=== PATIENT | male | born 1950 | race Caucasian/White ===

== ENCOUNTER 2021-01-11 10:00 | Outpatient (CLI) | payer OTHER | END 2021-01-11 10:30 | disposition home or self-care (01) | LOC: PPH VACUNA 10:00 | PROVIDERS: ATTEND Emergency Medicine Pediatric Emergency Medicine | DX: Z23 Encounter for immunization (principal) ==

== ENCOUNTER 2021-08-18 08:00 | Outpatient (CLI) | payer OTHER | END 2021-08-18 08:30 | disposition home or self-care (01) | LOC: PPH VACUNA 08:00 | PROVIDERS: ATTEND Emergency Medicine Pediatric Emergency Medicine | DX: Z23 Encounter for immunization (principal); Z71.85 Encounter for immunization safety counseling ==

== ENCOUNTER → 2022-11-26 | Emergency (ER) | payer OTHER ==
[~2022-11-26] VITALS: Ht 172.7 cm; Wt 70.3 kg
[~2022-11-26] MED LIST: ALPRAZOLAM OD0.25 MG; BIDIL TABLET1 EACH; COZAAR25 MG; ECOTRIN81 MG; EZALLOR SPRINKLE5 MG; KAPSPARGO SPRIN25 MG; MEDROLPACK PO; NITROGLYCERIN0.4 MG; PAXLOVID 300-11 EACH PO; PROAIR RESPICL90 MCG IH; TUSNEL LIQUID178 ML PO; XARELTO10 MG
== END | disposition home or self-care (01) ==
LOC: ER 08:26
DX: U07.1 COVID-19 (principal); B34.9 Viral infection, unspecified; R53.81 Other malaise; R10.9 Unspecified abdominal pain; I10 Essential (primary) hypertension

== ENCOUNTER 2023-11-25 16:17 | Emergency (ER) | payer OTHER ==
[~2023-11-25] VITALS: Ht 152.4 cm; Wt 71.7 kg
[2023-11-25] MEDS ORDERED: SYNTHROID88 MCG PO (16:52)
[2023-11-25] MEDS ORDERED: TOPROL XL25 M1 PO (16:52)
[2023-11-25 18:45] LABS: HEMATOCRIT 44.8 % (39.0-48.0); HEMOGLOBIN 14.9 g/dL (13-16.00); MEAN CELL VOLUME 83.9 fL (80.0-100.00); MEAN CORPUSCULAR HGB CONC 33.3 g/dl (32.0-36.0); PLATELET COUNT 143 K/uL (150-450); RED BLOOD COUNT 5.34 M/uL (4.00-6.00); RED CELL DISTRIBUTION WIDTH 14.7 % (11.5-14.5)
[2023-11-25 18:57] LABS: CALCIUM 10.1 mg/dL (8.5-10.1); CREATININE SERUM 0.91 mg/dL (0.70-1.30); GFR 81.44; POTASSIUM 4.28 mEq/L (3.5-5.1)
== END 2023-11-25 19:35 | disposition home or self-care (01) ==
LOC: ER 16:19
PROVIDERS: General Practice
DX: M94.0 Chondrocostal junction syndrome [Tietze] (principal); V89.2XXA Person injured in unspecified motor-vehicle accident, traffic, initial encounter

== ENCOUNTER 2024-10-09 14:49 | Emergency (ER) | payer OTHER ==
[~2024-10-09] VITALS: Ht 170.2 cm; Wt 71.2 kg
[~2024-10-09 14:49] MED LIST changes: +SYNTHROID88 MCG PO; +TOPROL XL25 M1 PO
[2024-10-09] MEDS ORDERED: FAMOTIDINE/PF 20 MG/2 ML VIAL IV ONE (16:45)
[2024-10-09] MEDS ORDERED: KETOROLAC TROMETHAMINE 15 MG VIAL IV ONE (16:45)
[2024-10-09] MEDS ORDERED: KETOROLAC TROMETHAMINE 30 MG VIAL ONE (17:01)
[2024-10-09] MEDS ORDERED: FAMOTIDINE/PF 20 MG/2 ML VIAL ONE (17:01)
[2024-10-09 17:42] LABS: BASO % 0.3 % (0.1-1.2); EOS # 0.12 (0.04-0.54); EOS % 1.3 % (0.7-7.0); HEMATOCRIT 37.6 % (40.1-51.0); HEMOGLOBIN 12.4 g/dL (13.7-17.5); LYMPH # 1.24 (1.18-3.74); LYMPH % 13.9 % (19.3-53.1); MONO # 1.08 (0.24-0.82); NEUT # 6.39 (1.56-6.13); NEUT % 72.1 % (34.0-71.1); PLATELET COUNT 135 K/uL (163-369); RED BLOOD COUNT 4.59 M/uL (4.63-6.08); RED CELL DISTRIBUTION WIDTH 15.5 % (11.6-14.4)
[2024-10-09 17:44] LABS: MONO % 12.1 % (4.7-12.5)
[2024-10-09 17:58] LABS: INR 1.27; PARTIAL THROMBOPLASTIN TIME 29.3 SECONDS (22.0-34.0); PROTHROMBIN TIME 13.6 SECONDS (9.0-11.5)
[2024-10-09 18:00] LABS: CALCIUM 9.2 mg/dL (8.5-10.1); CREATININE SERUM 0.89 mg/dL (0.70-1.30); GFR 83.33; POTASSIUM 4.02 mEq/L (3.5-5.1)
[2024-10-09 19:42] LABS: PH,URINE 6.5 (5.0-8.0); URINE APPEARANCE Clear; URINE BILIRRUBIN Negative (NEGATIVE); URINE BLOOD Negative; URINE COLOR Dark Yellow; URINE GLUCOSE Negative (NEGATIVE); URINE KETONE Negative (NEGATIVE); URINE LEUKOCYTE Negative; URINE NITRATE Negative
[2024-10-09 19:46] LABS: URINE BACTERIA 15.9 uL (0.0-1933); URINE RBC 10.7 uL (0.0-20.8); URINE WBC 2.8 uL (0.0-23.2)
[2024-10-09 19:52] LABS: URINE CAST 0.29 uL (0.0-1.40); URINE PROTEIN 100 (NEGATIVE)
[2024-10-09] MEDS ORDERED: PIPERACILLIN/TAZOBACTAM SODIUM 3.375 GM VIAL IV ONE ×2 (21:15→21:59)
== END 2024-10-09 22:41 | disposition home or self-care (01) ==
LOC: ER 14:49
PROVIDERS: Emergency Medicine
DX: K57.32 Diverticulitis of large intestine without perforation or abscess without bleeding (principal); K40.90 Unilateral inguinal hernia, without obstruction or gangrene, not specified as recurrent
CPT/HCPCS: 36415; 74177; 96365; 99284; J1885; J3490; Q9965

== ENCOUNTER 2024-11-20 11:31 | Inpatient (IN) | payer OTHER ==
[~2024-11-20] VITALS: Ht 172.7 cm; Wt 68.0 kg
--- NOTE | 2024-11-20 11:50 | NUR ---
PACIENTE ALERTA Y ORIENTADO X3 EL MISMO REFIERE QUE ESTUBO AQUI EL DE Y LE DIAGNOSTICARON DIVERTIGULO INFAMADO Y EN EL ALISON DE HOY PRESENTA DOLOR ABDOMINAL. S/V ESTABLE DENTRO DE SOLOMON CONDICION . PACIENTE EN ESPERA DE EVALUACION MEDICA.
[2024-11-20] MEDS ORDERED: ONDANSETRON HCL 2 MG/ML VIAL IV ONE (13:00)
[2024-11-20] MEDS ORDERED: FAMOTIDINE/PF 20 MG/2 ML VIAL IV ONE (13:00)
[2024-11-20] MEDS ORDERED: KETOROLAC TROMETHAMINE 30 MG VIAL IV ONE (13:00)
[2024-11-20] MEDS ORDERED: 0.9 % SODIUM CHLORIDE 500 ML IV ONE (13:00)
[2024-11-20] MEDS ORDERED: FAMOTIDINE/PF 20 MG/2 ML VIAL ONE (13:01)
[2024-11-20] MEDS ORDERED: ONDANSETRON HCL 2 MG/ML VIAL ONE (13:01)
[2024-11-20] MEDS ORDERED: BARIUM SULFATE 450 ML ORAL.SUSP PO ONE (13:01)
[2024-11-20] MEDS ORDERED: KETOROLAC TROMETHAMINE 30 MG VIAL ONE (13:01)
[2024-11-20] MEDS ORDERED: DIATRIZOATE MEGLUMINE, SODIUM 30 ML BOTTLE ONE (13:09)
--- NOTE | 2024-11-20 13:24 | NUR ---
PTE EVALUADO POR EL , SMITH QUIEN ORDENA TRATAMIETO LA CUAL SE EJECUTA. SE LE DA A MARY GASTROVIEW A EL PTE PARA EL ESTUDIONDE CT SCAN Y PENDIENTE A LA MUESTRA DE LA DONNY DE ORINA.
[2024-11-20 13:35] LABS: BASO % 0.2 % (0.1-1.2); EOS # 0.02 (0.04-0.54); EOS % 0.2 % (0.7-7.0); LYMPH # 0.81 (1.18-3.74); LYMPH % 7.0 % (19.3-53.1); MEAN PLATELET VOLUME 12.80 fl (9.4-12.4); MONO # 1.27 (0.24-0.82); MONO % 10.9 % (4.7-12.5); NEUT # 9.47 (1.56-6.13); NEUT % 81.4 % (34.0-71.1); RED CELL DISTRIBUTION WIDTH 15.5 % (11.6-14.4)
[2024-11-20 14:33] LABS: ALT/SGPT 38.0 U/L (12-78); AST/SGOT 34.0 U/L (15-37); BILIRUBIN TOTAL 1.91 mg/dL (0.3-1.2); BUN CREA RATIO 13.0 (7.0-25.0); CREATININE SERUM 0.89 mg/dL (0.70-1.30); GFR 83.33; GLOBULINA 3.9 G/DL (2.4-3.5); GLUCOSE FASTING 104.0 mg/dL (65-100); OSMOLALITY SERUM 279.0 MOSM/KG (275-295)
[2024-11-20 16:14] LABS: URINE APPEARANCE Clear; URINE BILIRRUBIN Small (NEGATIVE); URINE BLOOD Negative; URINE COLOR Dark Yellow; URINE GLUCOSE Negative (NEGATIVE); URINE KETONE Trace (NEGATIVE); URINE LEUKOCYTE Negative; URINE NITRATE Negative; URINE PROTEIN 30 (NEGATIVE); URINE UROBILINOGEN 1.0 E.U./dl
[2024-11-20 16:15] LABS: URINE BACTERIA 56.3 uL (0.0-1933); URINE CAST 1.46 uL (0.0-1.40); URINE EPITHELIAL CELLS 14.2 uL (0.0-38.8); URINE RBC 8.9 uL (0.0-20.8); URINE WBC 6.2 uL (0.0-23.2)
[2024-11-20 16:34] LABS: URINE MUCUS SCANT
[2024-11-20] MEDS ORDERED: CIPROFLOXACIN IN 5 % DEXTROSE 400 MG/200 ML PIGGYBAG IV ONE ×2 (17:39→17:45)
[2024-11-20] MEDS ORDERED: METRONIDAZOLE/SODIUM CHLORIDE 500 MG/100 ML PIGGYBACK IV ONE ×2 (17:39→17:45)
[2024-11-20] MEDS ORDERED: MORPHINE SULFATE 2 MG/ML CARTRIDGE IV PRN (19:45)
[2024-11-20] MEDS ORDERED: METOPROLOL TARTRATE 50 MG TABLET PO SCH (19:48)
[2024-11-20] MEDS ORDERED: ISOSORBIDE DINITRATE 20 MG TABLET PO SCH (19:48)
[2024-11-20] MEDS ORDERED: RIVAROXABAN 20 MG TABLET PO SCH (19:49)
[2024-11-20] MEDS ORDERED: ONDANSETRON HCL 4 MG in 0.9 % SODIUM CHLORIDE 50 ML IV PRN (20:00)
[2024-11-20] MEDS ORDERED: 0.9 % SODIUM CHLORIDE 1,000 ML IV SCH (20:00)
[2024-11-20] MEDS ORDERED: CIPROFLOXACIN IN 5 % DEXTROSE 200 ML IV SCH (21:00)
[2024-11-20 21:48] VITALS: BP 111/70; O2SAT 99
[2024-11-20 22:12] VITALS: BP 111/70
[2024-11-20 23:00] VITALS: BP 130/75; O2SAT 98
[2024-11-21 01:28] VITALS: BP 103/65; O2SAT 97
[2024-11-21] MEDS ORDERED: LEVOTHYROXINE SODIUM 88 MCG TABLET PO SCH (06:00)
[2024-11-21 08:56] VITALS: BP 104/63; O2SAT 97
[2024-11-21 19:26] VITALS: BP 109/71; O2SAT 98
[2024-11-21] MEDS ORDERED: PANTOPRAZOLE SODIUM 40 MG TABLET.DR PO SCH (20:18)
[2024-11-21] MEDS ORDERED: ROSUVASTATIN CALCIUM 10 MG TABLET PO SCH (20:18)
[2024-11-22 02:12] VITALS: BP 96/62; O2SAT 97
[2024-11-22 04:56] LABS: BASO % 0.4 % (0.1-1.2); EOS # 0.27 (0.04-0.54); EOS % 3.8 % (0.7-7.0); LYMPH # 1.17 (1.18-3.74); MEAN PLATELET VOLUME 12.40 fl (9.4-12.4); MONO # 0.86 (0.24-0.82); NEUT # 4.73 (1.56-6.13); NEUT % 66.9 % (34.0-71.1); RED CELL DISTRIBUTION WIDTH 15.5 % (11.6-14.4)
[2024-11-22 05:12] LABS: LYMPH % 16.5 % (19.3-53.1); MONO % 12.1 % (4.7-12.5)
[2024-11-22 05:30] LABS: ALT/SGPT 34.0 U/L (12-78); AST/SGOT 46.0 U/L (15-37); BILIRUBIN TOTAL 1.4 mg/dL (0.3-1.2); BUN CREA RATIO 16.0 (7.0-25.0); CREATININE SERUM 0.7 mg/dL (0.70-1.30); GFR 109.94; GLOBULINA 2.9 G/DL (2.4-3.5); GLUCOSE FASTING 85.0 mg/dL (65-100); OSMOLALITY SERUM 282.0 MOSM/KG (275-295)
[2024-11-22] MEDS ORDERED: SOD PHOSPHATE,MONOBASIC-DIBAS 3 MMOL/ML VIAL IV NR (09:00)
[2024-11-22] MEDS ORDERED: LOSARTAN POTASSIUM 25 MG TABLET PO SCH (09:00)
[2024-11-22 10:52] VITALS: BP 106/54; O2SAT 99
[2024-11-22] MEDS ORDERED: CIPRO500 MG PO (15:25)
[2024-11-22] MEDS ORDERED: METRONIDAZOLE500 MG PO (15:25)
[2024-11-22] MEDS ORDERED: TRAM1TAB98 PO (15:26)
[2024-11-22] MEDS ORDERED: INTESTINEX680 M1 PO (15:26)
[2024-11-22] MEDS ORDERED: LEVSIN/SL0.125 MG SL (15:26)
[2024-11-22] MEDS ORDERED: ROSUVASTATIN CALCIUM 20 MG TABLET PO SCH (17:00)
[2024-11-22 17:37] VITALS: BP 116/76; O2SAT 97
== END 2024-11-22 18:00 | disposition home or self-care (01) | DRG 392 ==
LOC: ER 11:31 → MEDI 19:56
PROVIDERS: Emergency Medicine; ADMIT Internal Medicine; ATTEND Internal Medicine
PROC: BW21ZZZ Computerized Tomography (CT Scan) of Abdomen and Pelvis (ICD-10-PCS; principal; 2024-11-20)
DX: K57.32 Diverticulitis of large intestine without perforation or abscess without bleeding (principal); D64.9 Anemia, unspecified; Z95.0 Presence of cardiac pacemaker; E03.9 Hypothyroidism, unspecified; I11.9 Hypertensive heart disease without heart failure; I25.10 Atherosclerotic heart disease of native coronary artery without angina pectoris

== ENCOUNTER 2024-12-14 12:53 | Emergency (ER) | payer OTHER ==
[~2024-12-14] VITALS: Ht 170.2 cm; Wt 65.8 kg
[~2024-12-14 12:53] MED LIST changes: +CIPRO500 MG PO; +INTESTINEX680 M1 PO; +LEVSIN/SL0.125 MG SL; +METRONIDAZOLE500 MG PO; +TRAM1TAB98 PO
[2024-12-14] MEDS ORDERED: DIATRIZOATE MEGLUMINE, SODIUM 30 ML BOTTLE ONE (14:33)
[2024-12-14 15:04] LABS: BASO % 0.5 % (0.1-1.2); EOS # 0.13 (0.04-0.54); EOS % 1.4 % (0.7-7.0); LYMPH # 0.99 (1.18-3.74); LYMPH % 10.8 % (19.3-53.1); MEAN PLATELET VOLUME 12.30 fl (9.4-12.4); MONO # 1.06 (0.24-0.82); MONO % 11.6 % (4.7-12.5); NEUT # 6.91 (1.56-6.13); NEUT % 75.4 % (34.0-71.1); RED CELL DISTRIBUTION WIDTH 15.4 % (11.6-14.4)
[2024-12-14 15:30] LABS: BUN CREA RATIO 15.0 (7.0-25.0); CREATININE SERUM 0.82 mg/dL (0.70-1.30); GFR 91.35; GLUCOSE FASTING 97.0 mg/dL (65-100); OSMOLALITY SERUM 279.0 MOSM/KG (275-295)
[2024-12-14 16:19] LABS: URINE APPEARANCE Clear; URINE BILIRRUBIN Negative (NEGATIVE); URINE BLOOD Negative; URINE COLOR Yellow; URINE GLUCOSE Negative (NEGATIVE); URINE KETONE Negative (NEGATIVE); URINE LEUKOCYTE Negative; URINE NITRATE Negative; URINE PROTEIN Negative (NEGATIVE); URINE UROBILINOGEN 1.0 E.U./dl
[2024-12-14 16:21] LABS: URINE RBC 2.7 uL (0.0-20.8)
[2024-12-14 16:38] LABS: URINE BACTERIA 1.1 uL (0.0-1933); URINE CAST 0.00 uL (0.0-1.40); URINE EPITHELIAL CELLS 0.7 uL (0.0-38.8); URINE WBC 0.7 uL (0.0-23.2)
[2024-12-14] MEDS ORDERED: CIPRO500 MG PO (19:12)
[2024-12-14] MEDS ORDERED: METRONIDAZOLE500 MG PO (19:12)
[2024-12-14] MEDS ORDERED: ANALPRAM HC 1%30 GM TOP (19:13)
== END 2024-12-14 19:31 | disposition home or self-care (01) ==
LOC: ER 12:53
PROVIDERS: Emergency Medicine
DX: R10.9 Unspecified abdominal pain (principal); K64.9 Unspecified hemorrhoids
CPT/HCPCS: 36415; 74177; 99284; Q9965